=== PATIENT | female | born 1930 | race African-American/Black ===

== ENCOUNTER 2017-06-22 21:16 | Emergency (ER) | payer OTHER ==
[~2017-06-22] VITALS: Ht 162.6 cm; Wt 106.2 kg
[2017-06-22 21:26] VITALS: Ht 162.6 cm; Wt 106.2 kg
--- NOTE | 2017-06-23 00:34 | RADRPT ---
PROCEDURE: CT Brain without contrast. CLINICAL INDICATION: Trauma. Pain. TECHNIQUE: Serial axial computed tomographic images of the brain was performed on a CT scanner fro m the skull base through the vertex without contrast. CTDlvol = 98 mGy and DLP = 1440 mGy-cm. One of the following 3 dose reduction techniques were used: Automated exposure control; adjustment of th e mA and/or kV according to patient size; or use of iterative reconstruction technique. COMPARISON: None available. FINDINGS: There is right frontal subcutaneous soft tissue swelling without an underlying fracture. The ventri cles and sulci are normal in size and configuration. There is no midline shift. There is no acute stroke. There is moderate degree of supratentorial periventricular and subcortical white matter hypo densities. No acute intracranial hemorrhage or abnormal extra-axial fluid collection. Visualized pa ranasal sinuses are clear. IMPRESSION: 1. Right frontal subcutaneous soft tissue swelling without an underlying fracture. 2. No acute post-traumatic intracranial abnormality. 3. Nonspecific white matter changes most commonly seen with small vessel disease. RPTAT: [facility] .Adalberto Dia MD, MD Date Time Electronically viewed and signed by .Adalberto Dia MD, on 06/23/2017 00:33 .K/
[2017-06-23] MEDS ORDERED: HYDROCODONE/APAP (10/325) TAB PO ONE (01:30)
--- NOTE | 2017-06-23 01:39 | RADRPT ---
PROCEDURE: Right knee. CLINICAL INDICATION: Pain. TECHNIQUE: Three views including AP, lateral and oblique views of the right knee were obtained. The images reviewed on a PACS workstation. COMPARISON: None. FINDINGS: There is no fracture or dislocation. There is moderate narrowing of the medial and lateral compartme nts and patellofemoral joints with osteophytes present. There is a small joint effusion. Bone minera lization is decreased. There is no radiopaque foreign body or abnormal calcification. IMPRESSION: No evidence of fracture. Moderate osteoarthritis. Small joint effusion. Osteopenia. .Hank Pearson MD, Date Time Electronically viewed and signed by .Hank Pearson MD, on 06/23/2017 01:39 .T/
[2017-06-23] MEDS ORDERED: HYDR-902 PO (01:51)
--- NOTE | 2017-06-23 01:54 | ERD ---
ER Documentation Chief Complaint Chief Complaint glf about 45 minutes ago, c/o forehead swelling. no ko HPI 87-year-old female comes in with complaints of ground-level fall about 45 minutes ago. Patient did hit her forehead but did not have a loss of consciousness. Also complaining of right knee pain secondary to the fall. No nausea vomiting no chills. No chest pain prior to the fall. No palpitations. No focal neurological complaints. No visual acuity changes. ROS All systems reviewed and are negative except as per history of present illness. Medications Home Meds Active Scripts Hydrocodone/Acetaminophen ([place] 10-325 Tablet) 1 Each Tablet, 1 TAB PO Q6H Y for PAIN, #20 TAB Prov:PAM MORRIS 06/23/17 Allergies Allergies: Coded Allergies: MORE Inhibitors (Verified Allergy, Unknown, swelling, 06/22/17) Penicillins (Verified Allergy, Unknown, 06/22/17) codeine (Verified Allergy, Unknown, 06/22/17) PMhx/Soc Hx Cardiac Disorders: Yes (HTN, high cholesterol) Hx Miscellaneous Medical Probl: Yes (Gout, DM II) Hx Alcohol Use: No Hx Substance Use: No Hx Tobacco Use: No Smoking Status: Never smoker Physical Exam Vitals Vital Signs Date Time Temp Pulse Resp B/P Pulse Ox O2 Delivery O2 Flow Rate FiO2 06/22/17 21:26 98.2 101 20 195/81 96 Physical Exam Const: [] Head: 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 Neck: Full range of motion..~ No meningismus. Resp: Clear to auscultation bilaterally Cardio: Regular rate and rhythm, no murmurs Abd: Soft, non tender, non distended. Normal bowel sounds Skin: No petechiae or rashes Back: No midline or flank tenderness Ext: No cyanosis, or edema Neur: Awake and alert Psych: Normal Mood and Affect Results 24 hrs Current Medications Medications (Trade) Dose Ordered Sig/Pamela Route PRN Reason Start Time Stop Time Status Last Admin Dose Admin Acetaminophen/ Hydrocodone Bitart ([place] (10/325)) 1 tab ONCE ONCE PO 06/23/17 01:30 06/23/17 01:31 DC 06/23/17 01:28 Procedures/MDM X-ray Knee 3V Interpreted by me: Bones: No fracture Joints: No dislocation Foreign body: None CT head read as negative for any intracranial pathology. Medical decision-makin-year-old female with mechanical fall. No evidence of fracture or intracranial assault. Patient will be discharged home told to follow with primary care physician. Return for worsening symptoms. Departure Diagnosis: Primary Impression: Closed head injury Encounter type: initial encounter Qualified Code: S09.90XA - Closed head injury, initial encounter Condition: Stable Patient Instructions: Contusion, Lower Extremity, HEAD INJURY, No Wake-Up ( Adult) PAM MORRIS Jun 23, 2017 01:54
[2017-06-23 02:06] VITALS: BP 168/73; PULSE 78; RESP 20; TEMP 98.3
== END 2017-06-23 02:07 | disposition home or self-care (01) ==
LOC: E/R 21:16
DX: S09.90XA Unspecified injury of head, initial encounter (principal); I10 Essential (primary) hypertension; E11.9 Type 2 diabetes mellitus without complications; R93.0 Abnormal findings on diagnostic imaging of skull and head, not elsewhere classified; W18.39XA Other fall on same level, initial encounter; Y92.9 Unspecified place or not applicable
CPT/HCPCS: 70450; 73562

== ENCOUNTER 2017-10-20 12:16 | Inpatient (IN) | END 2017-10-31 15:20 | disposition home or self-care (01) | DRG 871 ==